=== PATIENT | female | born 1965 | race Caucasian/White ===

== ENCOUNTER 2016-04-21 23:28 | Emergency (ER) | payer SELFPAY ==
[2016-04-21 23:41] VITALS: BP 133/94
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
== END 2016-04-22 00:17 | disposition home or self-care (01) ==
LOC: ER 23:28
DX: S40.021A Contusion of right upper arm, initial encounter (principal); S63.501A Unspecified sprain of right wrist, initial encounter; Y04.2XXA Assault by strike against or bumped into by another person, initial encounter; F17.210 Nicotine dependence, cigarettes, uncomplicated